=== PATIENT | male | born 1950 ===

== ENCOUNTER 2016-10-21 05:59 | Day surgery (SDC) | payer MEDICARE ==
[2016-10-19 10:32] VITALS: BMI 27.6
[2016-10-21 07:58] VITALS: O2SAT 100
[2016-10-21] MEDS ORDERED: Propofol 10 mg/ml Inj (20 ML) ONE (07:58)
[2016-10-21] MEDS ORDERED: Lactated Ringer's 500 ML IV SCH (08:30)
[2016-10-21 08:39] VITALS: TEMP 96.5
[2016-10-21 09:33] VITALS: RESP 12
[2016-10-21 09:41] VITALS: BP 118/82; PULSE 61
== END 2016-10-21 09:30 | disposition home or self-care (01) ==
LOC: C.ENDO 05:59
PROVIDERS: ATTEND Internal Medicine Gastroenterology
DX: D12.5 Benign neoplasm of sigmoid colon (principal); D12.2 Benign neoplasm of ascending colon
CPT/HCPCS: 45380; 82948; 88305; J2704; J3010; J7120